=== PATIENT | male | born 1995 | race Caucasian/White ===

== ENCOUNTER 2020-07-25 20:04 | Emergency (ER) | payer SELFPAY ==
[~2020-07-25] VITALS: Ht 177.8 cm; Wt 72.6 kg
--- NOTE | 2020-07-25 20:06 | ED GI ---
General Stated Complaint: N/V Source of Information: Patient Exam Limitations: No Limitations History of Present Illness Date Seen by Provider: Jul 25, 2020 Time Seen by Provider: 20:06 Initial Comments To ER with nausea and vomiting for 3 to 4 days he is unable to sleep because of the nausea and vomiting. He states he is a an "bad alcoholic". Drinks about two fifths of fireball per day. He smokes cigarettes and occasional marijuana. He is very anxious feeling. He did get some alcohol down today. Timing/Duration: 1-2 Days Severity/Quality: Moderate Location: Generalized Abdomen Radiation: No Radiation Activities at Onset: Emotional Stress Associated Symptoms: Denies Symptoms Allergies and Home Medications Allergies Coded Allergies: No Known Drug Allergies (Unverified , 07/25/20) Home Medications Sucralfate 1 Gm Tablet, 1 GM PO ACHS Prescribed by: CATARINO GUTIÉRREZ on 07/25/202107 Patient Home Medication List Home Medication List Reviewed: Yes Review of Systems Review of Systems Constitutional: see HPI EENTM: No Symptoms Reported Respiratory: No Symptoms Reported Cardiovascular: No Symptoms Reported Gastrointestinal: See HPI, Abdominal Pain, Nausea, Vomiting Genitourinary: No Symptoms Reported Musculoskeletal: no symptoms reported Skin: no symptoms reported Psychiatric/Neurological: No Symptoms Reported Endocrine: No Symptoms Reported Hematologic/Lymphatic: No Symptoms Reported Physical Exam Vital Signs Vital Signs - First Documented 07/25/20 20:09 Temp 36.0 Pulse 128 Resp 20 B/P (MAP) 139/113 (122) Pulse Ox 96 O2 Delivery Room Air Capillary Refill : Height/Weight/BMI Height: '" Weight: lbs. oz. kg; BMI Method: General Appearance: WD/WN, no apparent distress Neck: non-tender Respiratory: no respiratory distress, no accessory muscle use Cardiovascular: no murmur, tachycardia Gastrointestinal: normal bowel sounds, soft, tenderness Extremities: normal range of motion, non-tender Neurologic/Psychiatric: alert, normal mood/affect, oriented x 3 Skin: normal color, warm/dry Progress/Results/Core Measures Results/Orders Lab Results Laboratory Tests Test 07/25/20 20:13 07/25/20 20:33 Range/Units White Blood Count 5.6 4.3-11.0 10^3/uL Red Blood Count 5.64 H 4.30-5.52 10^6/uL Hemoglobin 18.5 H 13.3-17.7 g/dL Hematocrit 51 40-54 % Mean Corpuscular Volume 90 80-99 fL Mean Corpuscular Hemoglobin 33 25-34 pg Mean Corpuscular Hemoglobin Concent 36 32-36 g/dL Red Cell Distribution Width 12.8 10.0-14.5 % Platelet Count 266 130-400 10^3/uL Mean Platelet Volume 8.4 L 9.0-12.2 fL Immature Granulocyte % (Auto) 0 % Neutrophils (%) (Auto) 55 42-75 % Lymphocytes (%) (Auto) 35 12-44 % Monocytes (%) (Auto) 9 0-12 % Eosinophils (%) (Auto) 0 0-10 % Basophils (%) (Auto) 1 0-10 % Neutrophils # (Auto) 3.1 1.8-7.8 10^3/uL Lymphocytes # (Auto) 1.9 1.0-4.0 10^3/uL Monocytes # (Auto) 0.5 0.0-1.0 10^3/uL Eosinophils # (Auto) 0.0 0.0-0.3 10^3/uL Basophils # (Auto) 0.1 0.0-0.1 10^3/uL Immature Granulocyte # (Auto) 0.0 0.0-0.1 10^3/uL Prothrombin Time 14.2 12.2-14.7 SEC INR Comment 1.1 0.8-1.4 Sodium Level 139 135-145 MMOL/L Potassium Level 3.6 3.6-5.0 MMOL/L Chloride Level 99 98-107 MMOL/L Carbon Dioxide Level 17 L 21-32 MMOL/L Anion Gap 23 H 5-14 MMOL/L Blood Urea Nitrogen 5 L 7-18 MG/DL Creatinine 0.89 0.60-1.30 MG/DL Estimat Glomerular Filtration Rate > 60 BUN/Creatinine Ratio 6 Glucose Level 113 H 70-105 MG/DL Calcium Level 10.0 8.5-10.1 MG/DL Corrected Calcium 8.5-10.1 MG/DL Total Bilirubin 4.5 H 0.1-1.0 MG/DL Aspartate Amino Transf (AST/SGOT) 222 H 5-34 U/L Alanine Aminotransferase (ALT/SGPT) 135 H 0-55 U/L Alkaline Phosphatase 100 40-136 U/L Total Protein 9.1 H 6.4-8.2 GM/DL Albumin 5.3 H 3.2-4.5 GM/DL Salicylates Level < 5.0 L 5.0-20.0 MG/DL Acetaminophen Level < 10 L 10-30 UG/ML Serum Alcohol 235 H <10 MG/DL Urine Color ORANGE Urine Clarity CLEAR Urine pH 6.0 5-9 Urine Specific [place] 1.020 1.016-1.022 Urine Protein 3+ H NEGATIVE Urine Glucose (UA) NEGATIVE NEGATIVE Urine Ketones 1+ H NEGATIVE Urine Nitrite NEGATIVE NEGATIVE Urine Bilirubin 1+ H NEGATIVE Urine Urobilinogen 4.0 < = 1.0 MG/DL Urine Leukocyte Esterase NEGATIVE NEGATIVE Urine RBC (Auto) 2+ H NEGATIVE Urine RBC RARE /HPF Urine WBC RARE /HPF Urine Squamous Epithelial Cells NONE /HPF Urine Crystals NONE /LPF Urine Bacteria TRACE /HPF Urine Casts PRESENT /LPF Urine Hyaline Casts RARE /LPF Urine Mucus SMALL H /LPF Urine Culture Indicated NO Urine Opiates Screen NEGATIVE NEGATIVE Urine Oxycodone Screen NEGATIVE NEGATIVE Urine Methadone Screen NEGATIVE NEGATIVE Urine Propoxyphene Screen NEGATIVE NEGATIVE Urine Barbiturates Screen NEGATIVE NEGATIVE Ur Tricyclic Antidepressants Screen NEGATIVE NEGATIVE Urine Phencyclidine Screen NEGATIVE NEGATIVE Urine Amphetamines Screen NEGATIVE NEGATIVE Urine Methamphetamines Screen NEGATIVE NEGATIVE Urine Benzodiazepines Screen NEGATIVE NEGATIVE Urine Cocaine Screen NEGATIVE NEGATIVE Urine Cannabinoids Screen POSITIVE H NEGATIVE My Orders Orders - CATARINO GUTIÉRREZ APRN Lactated Ringers (Lr 1000 Ml Iv Solution (07/25/20 20:15) Antacid Suspension (Mylanta Suspension (07/25/20 20:15) Lidocaine 2% Viscous 15 Ml (Xylocaine Vi (07/25/20 20:15) Lorazepam Injection (Ativan Injection) (07/25/20 20:15) Ondansetron Injection (Zofran Injectio (07/25/20 20:15) Alcohol (07/25/20 20:12) Salicylate (07/25/20 20:12) Acetaminophen (07/25/20 20:12) Ua Culture If Indicated (07/25/20 20:12) Drug Screen Stat (Urine) (07/25/20 20:12) Cbc With Automated Diff (07/25/20 20:12) Comprehensive Metabolic Panel (07/25/20 20:12) Protime With Inr (07/25/20 20:12) Lorazepam Injection (Ativan Injection) (07/25/20 21:00) Rx-Ondansetron Po (Rx-Zofran Po) (07/25/20 20:59) Lorazepam Tablet (Ativan Tablet) (07/25/20 21:10) Lorazepam Tablet (Ativan Tablet) (07/25/20 21:05) Medications Given in ED Current Medications Medications Dose Ordered Sig/[place] Route Start Time Stop Time Status Last Admin Dose Admin Al Hydrox/Mg Hydrox/Simethicone 30 ml ONCE ONCE PO 07/25/20 20:15 07/25/20 20:16 DC 07/25/20 20:19 30 ML Lidocaine HCl 15 ml ONCE ONCE PO 07/25/20 20:15 07/25/20 20:16 DC 07/25/20 20:19 15 ML Lorazepam 2 mg ONCE ONCE IVP 07/25/20 20:15 07/25/20 20:16 DC 07/25/20 20:19 2 MG Ondansetron HCl 8 mg ONCE ONCE IVP 07/25/20 20:15 07/25/20 20:16 DC 07/25/20 20:19 8 MG Vital Signs/I&O 07/25/20 20:09 Temp 36.0 Pulse 128 Resp 20 B/P (MAP) 139/113 (122) Pulse Ox 96 O2 Delivery Room Air Departure Communication (Admissions) 2105-symptoms were significantly improved nearly immediately after taking a GI cocktail. He states that he is already on Nexium. I will add Carafate to his regimen. 2113-is are completely resolved at this time, he has no nausea or abdominal pain. Still has some anxiety and tremors. Heart rate 105. Giving a third mg of oral lorazepam. Discharging to home in the care of his girlfriend who is at the bedside. Very appreciative of our care, raving about the effectiveness of the GI cocktail. Impression Primary Impression: Alcoholic gastritis Disposition: HOME, SELF-CARE Condition: Stable Departure-Patient Inst. Decision time for Depature: 21:07 Patient Instructions: Gastritis Add. Discharge Instructions: 1. Continue your Nexium 2. Reduce your alcohol intake it is significantly elevating your liver function tests and inflaming your liver. Take the additional medication as directed. Scripts Sucralfate (Sucralfate) 1 Gm Tablet 1 GM PO ACHDottie, #60 TAB Prov: CATARINO GUTIÉRREZ APRN 07/25/20 CATARINO GUTIÉRREZ APRN Jul 25, 2020 20:06
[2020-07-25] MEDS ORDERED: ANTACID SUSP 30 ML UDC (MYLANTA) PO ONE (20:15)
[2020-07-25] MEDS ORDERED: LORazepam INJ 2 MG/ML (ATIVAN) VIAL IVP ONE ×2 (20:15→21:00)
[2020-07-25] MEDS ORDERED: LIDOCAINE 2% VISCOUS 15 ML UDC PO ONE (20:15)
[2020-07-25] MEDS ORDERED: ONDANSETRON 4 MG/2 ML (SDV) Z0FRAN IVP ONE (20:15)
[2020-07-25] MEDS ORDERED: LACTATED RINGERS 1,000 ML IV SCH (20:15)
[2020-07-25 20:28] LABS: BASOPHILS # (AUTO) 0.1 10^3/uL (0.0-0.1); BASOPHILS % (AUTO) 1 % (0-10); EOSINOPHILS % (AUTO) 0 % (0-10); HEMATOCRIT 51 % (40-54); HEMOGLOBIN 18.5 g/dL (13.3-17.7); LYMPHOCYTES # (AUTO) 1.9 10^3/uL (1.0-4.0); LYMPHOCYTES % (AUTO) 35 % (12-44); MEAN CORPUSCULAR HEMOGLOBIN 33 pg (25-34); MEAN CORPUSCULAR HGB CONC 36 g/dL (32-36); MEAN CORPUSCULAR VOLUME 90 fL (80-99); MEAN PLATELET VOLUME 8.4 fL (9.0-12.2); MONOCYTES # (AUTO) 0.5 10^3/uL (0.0-1.0); MONOCYTES % (AUTO) 9 % (0-12); NEUTROPHILS # (AUTO) 3.1 10^3/uL (1.8-7.8); NEUTROPHILS % (AUTO) 55 % (42-75); PLATELET COUNT 266 10^3/uL (130-400); WHITE BLOOD COUNT 5.6 10^3/uL (4.3-11.0)
[2020-07-25 20:38] LABS: CLARITY,URINE CLEAR; COLOR,URINE ORANGE; GLUCOSE, URINE (UA) NEGATIVE (NEGATIVE); KETONES,URINE 1+ (NEGATIVE); LEUKOCYTE ESTERASE ,URINE NEGATIVE (NEGATIVE); NITRITE,URINE NEGATIVE (NEGATIVE); PROTEIN,URINE 3+ (NEGATIVE)
[2020-07-25 20:40] LABS: INR 1.1 (0.8-1.4); PROTHROMBIN TIME PATIENT 14.2 SEC (12.2-14.7)
[2020-07-25 20:43] LABS: BILIRUBIN,URINE 1+ (NEGATIVE)
[2020-07-25 20:45] LABS: BACTERIA,URINE TRACE /HPF; HYALINE CASTS, URINE RARE /LPF; RBC,URINE RARE /HPF; WBC,URINE RARE /HPF
[2020-07-25 20:49] LABS: ALANINE AMINOTRANSFERASE 135 U/L (0-55); ALBUMIN 5.3 GM/DL (3.2-4.5); ALKALINE PHOSPHATASE 100 U/L (40-136); BILIRUBIN,TOTAL 4.5 MG/DL (0.1-1.0); BUN/CREATININE RATIO 6; CARBON DIOXIDE 17 MMOL/L (21-32); CHLORIDE 99 MMOL/L (98-107); CREATININE SERUM 0.89 MG/DL (0.60-1.30); GFR ESTIMATED > 60; GLUCOSE 113 MG/DL (70-105); POTASSIUM 3.6 MMOL/L (3.6-5.0); SALICYLATE < 5.0 MG/DL (5.0-20.0); SODIUM 139 MMOL/L (135-145); TOTAL PROTEIN 9.1 GM/DL (6.4-8.2)
[2020-07-25 20:50] LABS: AMPHETAMINE SCREEN, URINE NEGATIVE (NEGATIVE); BARBITURATE SCREEN URINE NEGATIVE (NEGATIVE); BENZODIAZEPINES SCREEN URINE NEGATIVE (NEGATIVE); CANNABINOID SCREEN, URINE POSITIVE (NEGATIVE); COCAINE SCREEN URINE NEGATIVE (NEGATIVE); METHADONE STAT NEGATIVE (NEGATIVE); METHAMPHETAMINE SCREEN URINE S NEGATIVE (NEGATIVE); OPIATE SCREEN URINE NEGATIVE (NEGATIVE); OXYCODONE STAT NEGATIVE (NEGATIVE); PROPOXYPHENE STAT NEGATIVE (NEGATIVE); TRICYCLIC ANTIDEPRESSANTS SCRE NEGATIVE (NEGATIVE)
[2020-07-25 20:50] LABS: ACETAMINOPHEN < 10 UG/ML (10-30)
[2020-07-25] MEDS ORDERED: RX-ONDANSETRON 4 MG ODT (ZOFRAN) PPK #4 PO STA (20:59)
[2020-07-25] MEDS ORDERED: LORazepam 0.5 MG (ATIVAN) TABLET ONE (21:05)
[2020-07-25] MEDS ORDERED: SUCR1TAB PO (21:08)
[2020-07-25] MEDS ORDERED: LORazepam 0.5 MG (ATIVAN) TABLET PO STA (21:10)
[2020-07-25 21:13] VITALS: BP 133/101
== END 2020-07-25 21:19 | disposition home or self-care (01) ==
LOC: ER 20:06
DX: K29.20 Alcoholic gastritis without bleeding (principal); Y90.7 Blood alcohol level of 200-239 mg/100 ml
CPT/HCPCS: 80053; 80306; 81000; 85025; 85610; 99284; G0480 ×3; 36415; 80320; 80329

== ENCOUNTER 2020-12-08 17:40 | Emergency (ER) | payer SELFPAY ==
[~2020-12-08 17:40] MED LIST: SUCR1TAB PO
== END 2020-12-08 18:50 | disposition left against medical advice (07) ==
LOC: EDUNIT# 17:40 → ER 17:43
DX: G40.909 Epilepsy, unspecified, not intractable, without status epilepticus (principal)